=== PATIENT | female | born 1950 | race African-American/Black ===

== ENCOUNTER 2021-08-31 10:09 | Inpatient (IN) | payer MEDICARE, OTHER ==
[2021-08-31] MEDS ORDERED: Furosemide 40 MG/4 ML VIAL ONE (11:15)
[2021-08-31 11:16] LABS: #Eosinphils 0.1 10x3/uL (0.0-0.5); #Monocytes 0.5 10x3/uL (0.0-1.1); #Neutrophils 3.1 10x3/uL (1.5-8.4); %Basophils 0.7 % (0.0-2.0); %Eosinophils 2.4 % (0.0-6.0); %Lymphocytes 35.9 % (18.0-47.0); %Monocytes 8.3 % (0.0-10.0); %Neutrophils 52.4 % (40.0-75.0); Hemoglobin 12.6 g/dL (12.0-15.5); Mean Corpuscular HGB CONC 31.3 g/dL (32.0-36.0); Mean Corpuscular Hemoglobin 28.5 pg (27.0-33.0); Mean Corpuscular Volume 91.2 fl (81.6-98.3); Mean Platelet Volume 10.1 fl (7.4-10.4); Platelet Count 238 10x3/uL (150-450); RBC Distribution Width 13.3 % (11.5-14.5); Red Blood Cell (RBC) Count 4.42 10x6/uL (3.90-5.03); White Blood Cell (WBC) Count 5.9 10x3/uL (3.5-10.5)
[2021-08-31] MEDS ORDERED: Aspirin 325 MG TAB ONE (11:16)
[2021-08-31 11:35] LABS: ALT (SGPT) 16 U/L (8-55); AST (SGOT) 16 U/L (5-34); Albumin 3.9 g/dL (3.4-4.8); Alkaline Phosphatase 78 U/L (40-110); Anion Gap 14 mmol/L (10-20); BUN (Urea Nitrogen) 11 mg/dL (9.8-20.1); Bilirubin, Total 0.3 mg/dL (0.2-1.2); Calc. Creatinine Clearance 0 mL/min (70-130); Calcium 9.1 mg/dL (7.8-10.44); Carbon Dioxide 27 mmol/L (23-31); Chloride 107 mmol/L (98-107); Globulin 3.4 g/dL (2.4-3.5); Glucose 109 mg/dL (80-115); Potassium 3.6 mmol/L (3.5-5.1); Protein, Total 7.3 g/dL (5.8-8.1); Sodium 144 mmol/L (136-145)
[2021-08-31 11:56] LABS: Bilirubin Neg (Negative); Blood, Urine 25 (Negative); Clarity Clear (Clear); Glucose, Urine (Dipstick) Normal (Negative); Ketone, Urine Negative (Negative); Leukocyte 25 (Negative); Nitrite Negative (Negative); Protein, Urine (Dipstick) Negative (Neg-Trace); Urobilinogen Normal mg/dL (Less than 2); pH, Urine 6.5 (5.0-9.0)
[2021-08-31 12:17] LABS: Bacteria/HPF 3+ HPF (None Seen); Squamous Epithelial 0-3 HPF (0-3)
[2021-08-31 12:18] LABS: Mucous/LPF Rare LPF (<2+)
[2021-08-31] MEDS ORDERED: Bisacodyl 5 MG TAB PO PRN (13:15)
[2021-08-31] MEDS ORDERED: Acetaminophen 325 MG TAB PO PRN (13:15)
[2021-08-31] MEDS ORDERED: Senokot S 8.6-50 MG TAB PO PRN (13:15)
[2021-08-31] MEDS ORDERED: Acetaminophen 650 MG Suppository PR PRN (13:15)
[2021-08-31 14:19] LABS: Troponin I Less than 0.010 ng/mL (< 0.028)
[2021-08-31 15:10] LABS: SARS-CoV-2 NAA Rapid Test Not Detected (NotDetected)
[2021-08-31 16:13] VITALS: BMI 37.4
[2021-08-31 16:19] LABS: Troponin I Less than 0.010 ng/mL (< 0.028)
[2021-08-31 20:13] LABS: Hemoglobin A1c 5.7 % (4.0-6.0)
[2021-09-01] MEDS: traMADol HCl 50 MG TAB PO PRN ×2 (02:20→20:54)
[2021-09-01 03:21] LABS: #Eosinphils 0.2 10x3/uL (0.0-0.5); #Monocytes 0.6 10x3/uL (0.0-1.1); #Neutrophils 3.3 10x3/uL (1.5-8.4); %Basophils 0.6 % (0.0-2.0); %Eosinophils 2.5 % (0.0-6.0); %Lymphocytes 34.8 % (18.0-47.0); %Monocytes 9.5 % (0.0-10.0); %Neutrophils 51.8 % (40.0-75.0); Hemoglobin 12.4 g/dL (12.0-15.5); Mean Corpuscular HGB CONC 31.2 g/dL (32.0-36.0); Mean Corpuscular Hemoglobin 28.1 pg (27.0-33.0); Mean Corpuscular Volume 90.2 fl (81.6-98.3); Mean Platelet Volume 9.8 fl (7.4-10.4); Platelet Count 238 10x3/uL (150-450); RBC Distribution Width 13.4 % (11.5-14.5); Red Blood Cell (RBC) Count 4.41 10x6/uL (3.90-5.03); White Blood Cell (WBC) Count 6.4 10x3/uL (3.5-10.5)
[2021-09-01 03:38] LABS: Anion Gap 15 mmol/L (10-20); BUN (Urea Nitrogen) 12 mg/dL (9.8-20.1); Calc. Creatinine Clearance 95 mL/min (70-130); Calcium 9.2 mg/dL (7.8-10.44); Carbon Dioxide 27 mmol/L (23-31); Cardiac Risk 4.4 (Less than 4.5); Chloride 103 mmol/L (98-107); Cholesterol 231 mg/dl (< 200 Desired); Glucose 130 mg/dL (80-115); HDL Cholesterol 53 mg/dL (>60 Neg Risk); LDL Cholesterol, Calculated 136 mg/dL; Sodium 142 mmol/L (136-145); Triglycerides 208 mg/dL (Less than 150)
[2021-09-01 03:55] LABS: Potassium 2.9 mmol/L (3.5-5.1)
[2021-09-01] MEDS ORDERED: Potassium Chloride 20 MEQ TAB PO SCH ×2 (04:45→08:00)
[2021-09-01] MEDS ORDERED: Furosemide 40 MG TAB PO SCH (07:30)
[2021-09-01] MEDS ORDERED: Electrolyte Replacement Protocol 1 EACH FS PRN (07:36)
[2021-09-01 08:43] LABS: Magnesium 1.9 mg/dL (1.6-2.6)
[2021-09-01 08:50] LABS: Troponin I Less than 0.010 ng/mL (< 0.028)
[2021-09-01] MEDS ORDERED: Amlodipine 5 MG TAB PO SCH (09:00)
[2021-09-01] MEDS ORDERED: Furosemide 20 MG TAB PO SCH (09:00)
[2021-09-01] MEDS: Lisinopril 5 MG TAB PO SCH (09:07)
[2021-09-01] MEDS: Carvedilol 3.125 MG TAB PO SCH ×2 (09:08→17:18)
[2021-09-01] MEDS ORDERED: Magnesium Oxide 400 MG TAB PO SCH (09:15)
[2021-09-01 14:47] LABS: Potassium 4.5 mmol/L (3.5-5.1)
[2021-09-01] MEDS ORDERED: Communication Order-Pharmacy FS SCH (15:30)
[2021-09-01] MEDS ORDERED: Calcium Carbonate 500 MG ChewTAB PO PRN (21:23)
[2021-09-02 04:43] LABS: #Eosinphils 0.2 10x3/uL (0.0-0.5); #Monocytes 0.7 10x3/uL (0.0-1.1); #Neutrophils 4.2 10x3/uL (1.5-8.4); %Basophils 0.4 % (0.0-2.0); %Lymphocytes 26.4 % (18.0-47.0); %Monocytes 9.6 % (0.0-10.0); Hemoglobin 12.7 g/dL (12.0-15.5); Mean Corpuscular HGB CONC 31.5 g/dL (32.0-36.0); Mean Corpuscular Hemoglobin 28.7 pg (27.0-33.0); Mean Corpuscular Volume 91.2 fl (81.6-98.3); Mean Platelet Volume 9.8 fl (7.4-10.4); Platelet Count 230 10x3/uL (150-450); RBC Distribution Width 13.6 % (11.5-14.5); Red Blood Cell (RBC) Count 4.42 10x6/uL (3.90-5.03)
[2021-09-02 04:48] LABS: PTT 26.4 sec (22.0-33.0); Prothrombin Time 10.7 sec (9.5-12.1)
[2021-09-02 04:52] LABS: ALT (SGPT) 19 U/L (8-55); AST (SGOT) 19 U/L (5-34); Albumin 3.7 g/dL (3.4-4.8); Alkaline Phosphatase 74 U/L (40-110); Anion Gap 13 mmol/L (10-20); BUN (Urea Nitrogen) 11 mg/dL (9.8-20.1); Bilirubin, Total 0.3 mg/dL (0.2-1.2); Calc. Creatinine Clearance 108 mL/min (70-130); Calcium 9.1 mg/dL (7.8-10.44); Carbon Dioxide 27 mmol/L (23-31); Chloride 104 mmol/L (98-107); Globulin 3.3 g/dL (2.4-3.5); Glucose 129 mg/dL (80-115); Sodium 140 mmol/L (136-145)
[2021-09-02] MEDS: Carvedilol 3.125 MG TAB PO SCH (06:45)
[2021-09-02] MEDS ORDERED: Heparin 10,000 UNITS/ 10 ML VIAL ONE (06:45)
[2021-09-02] MEDS ORDERED: Nitroglycerin 50 MG/250 ML BOT 250 ML ONE (06:45)
[2021-09-02] MEDS: Lisinopril 5 MG TAB PO SCH (06:46)
[2021-09-02] MEDS ORDERED: Verapamil 5 MG/2 ML VIAL ONE (06:47)
[2021-09-02] MEDS ORDERED: Adenosine 6 MG/2 ML VIAL ONE (06:47)
[2021-09-02] MEDS ORDERED: Bivalirudin 250 MG VIAL ONE (06:48)
[2021-09-02] MEDS ORDERED: Fentanyl 100 MCG/2 ML VIAL ONE (06:55)
[2021-09-02] MEDS ORDERED: Midazolam HCl 2 mg/2 ml Vial ONE (06:55)
[2021-09-02] MEDS ORDERED: Lidocaine 1% PF 5 ML VIAL ONE (07:02)
[2021-09-02] MEDS ORDERED: Nitroglycerin 0.4 MG TAB (25 Tab Bottle) SL PRN (07:53)
[2021-09-02] MEDS ORDERED: Sodium Chloride 0.9% 200 ML IV PRN (07:53)
[2021-09-02] MEDS ORDERED: Acetaminophen/Codeine 30-300mg Tablet PO PRN ×2 (07:53)
[2021-09-02 12:54] VITALS: TEMP 97.6
[2021-09-02 13:50] VITALS: BP 142/76
[2021-09-02] MEDS ORDERED: Atorvastatin Calcium 20 MG TAB PO SCH (21:00)
== END 2021-09-02 16:20 | disposition home or self-care (01) | DRG 286 ==
LOC: CSHERS 10:09 → CSHTELE 15:22 → OBSVTOIN 09-01 09:03
PROVIDERS: ADMIT Hospitalist; ATTEND Nurse Practitioner Family
PROC: 4A023N7 Measurement of Cardiac Sampling and Pressure, Left Heart, Percutaneous Approach (ICD-10-PCS; principal; 2021-09-02)
PROC: B2111ZZ Fluoroscopy of Multiple Coronary Arteries using Low Osmolar Contrast (ICD-10-PCS; 2021-09-02)
PROC: B2151ZZ Fluoroscopy of Left Heart using Low Osmolar Contrast (ICD-10-PCS; 2021-09-02)
DX: I11.0 Hypertensive heart disease with heart failure (principal); I50.43 Acute on chronic combined systolic (congestive) and diastolic (congestive) heart failure; I42.8 Other cardiomyopathies; E78.5 Hyperlipidemia, unspecified; M19.90 Unspecified osteoarthritis, unspecified site; E66.01 Morbid (severe) obesity due to excess calories; E87.6 Hypokalemia; R73.03 Prediabetes; Z20.822 Contact with and (suspected) exposure to COVID-19; Z79.899 Other long term (current) drug therapy; Z68.37 Body mass index [BMI] 37.0-37.9, adult; Z91.14 Patient's other noncompliance with medication regimen
CPT/HCPCS: 36415; 71045; 71275; 80048; 80053; 80061; 81003; 81015; 83036; 83735; 83880; 84484; 85025; 85379; 85610; 85730; 93005; 93306; 93458; 96374; 99152; G0378; J0153; J0583; J1644; J1940; J2250; J3010; U0002